=== PATIENT | female | born 1970 | race Caucasian/White ===

== ENCOUNTER 2025-08-20 18:25 | Emergency (ER) | payer OTHER, BC ==
[2025-08-20 18:41] VITALS: BP 118/66; PULSE 79; RESP 18; TEMP 98.1; BMI 35.5
[2025-08-20] MEDS ORDERED: KETOROLAC TROMETHAMINE 60 MG/2 ML VIAL ONE (19:56)
[2025-08-20] MEDS: KETOROLAC TROMETHAMINE 60 MG/2 ML VIAL IM ONE (20:03)
== END 2025-08-20 22:20 | disposition home or self-care (01) ==
LOC: FER 18:25 → JERFT 18:25 → FER 22:20
PROC: 3E0233Z Introduction of Anti-inflammatory into Muscle, Percutaneous Approach (ICD-10-PCS; principal; 2025-08-20)
DX: S93.602A Unspecified sprain of left foot, initial encounter (principal); M25.562 Pain in left knee; X50.1XXA Overexertion from prolonged static or awkward postures, initial encounter; Y99.0 Civilian activity done for income or pay; Y92.219 Unspecified school as the place of occurrence of the external cause
CPT/HCPCS: 73560-TC-LT-FY; 73630-TC-LT; 99284-25